=== PATIENT | male | born 1945 | race African-American/Black ===

== ENCOUNTER 2017-07-15 07:01 | Day surgery (SDC) | payer MEDICARE, MEDICAID ==
[~2017-07-15] VITALS: Ht 165.1 cm; Wt 74.8 kg
[2017-07-15] MEDS ORDERED: BUPIVACAINE HCL/PF 0.25% (2.5MG/ML) 10ML ONE ×2 (07:21→09:18)
[2017-07-15] MEDS ORDERED: LIDOCAINE HCL/PF 1% 10 MG/ML 5ML VIAL ONE ×3 (07:22→09:18)
[2017-07-15] MEDS ORDERED: LACTATED RINGERS 1,000 ML IV SCH (08:15)
[2017-07-15] MEDS ORDERED: TERB250T51 PO (08:41)
[2017-07-15] MEDS ORDERED: HYDR-4005 PO (08:41)
[2017-07-15] MEDS ORDERED: IBUP-2028 PO (08:41)
[2017-07-15] MEDS ORDERED: PROPOFOL 200MG/20ML VIAL IV ONE ×2 (08:59→09:19)
[2017-07-15] MEDS ORDERED: FENTANYL CITRATE/PF 50MCG/ML 2ML VIAL ONE (08:59)
[2017-07-15] MEDS ORDERED: MIDAZOLAM HCL 2 MG/2 ML VIAL ONE (09:00)
[2017-07-15] MEDS ORDERED: CEFAZOLIN SODIUM 1000MG/VIAL ONE ×2 (09:08→09:10)
[2017-07-15] MEDS ORDERED: ONDANSETRON HCL 4MG/2ML VIAL ONE (09:09)
[2017-07-15] MEDS ORDERED: BETAMETHASONE ACET/BETAMET 30 MG/5 ML VIAL IM ONE (09:35)
[2017-07-15] MEDS ORDERED: SODIUM CHLORIDE 0.9% 1,000 ML IV ONE (09:43)
[2017-07-15] MEDS ORDERED: ONDANSETRON HCL 4MG/2ML VIAL IV PRN (09:45)
[2017-07-15] MEDS ORDERED: HYDROMORPHONE HCL/PF 2MG/ML CPJ IV PRN (09:45)
== END 2017-07-15 11:10 | disposition home or self-care (01) ==
LOC: OR 07:01
PROVIDERS: ATTEND Podiatrist Foot & Ankle Surgery
DX: M20.21 Hallux rigidus, right foot (principal); L97.418 Non-pressure chronic ulcer of right heel and midfoot with other specified severity; I10 Essential (primary) hypertension; B19.20 Unspecified viral hepatitis C without hepatic coma
CPT/HCPCS: 28289; 88304; 88311; J0690; J0702; J2250; J2405; J3010; J3490; J7120; J2704